=== PATIENT | male | born 2000 | race African-American/Black ===

== ENCOUNTER 2018-03-07 06:53 | Emergency (ER) | payer SELFPAY ==
[~2018-03-07] VITALS: Ht 157.5 cm; Wt 61.0 kg
[~2018-03-07 06:53] MED LIST: MAGN400C PO; MULT-1146 PO
[2018-03-07 07:49] VITALS: BP 123/76
== END 2018-03-07 08:16 | disposition left against medical advice (07) ==
LOC: ER 08:13
DX: R05 Cough (principal); Z53.21 Procedure and treatment not carried out due to patient leaving prior to being seen by health care provider